=== PATIENT | female | born 1950 | race Caucasian/White ===

== ENCOUNTER → 2017-01-03 | Outpatient (CLI) | payer MEDICARE, OTHER ==
[~2017-01-03] MED LIST: BACTRIM DS TABL1 TA1 PO; BACTROBAN15 GM TOP; CLARITIN10 MG PO; KEFLEX PO; MULTIVITAMIN1 UDCAP PO; NO MEDICATIONS; VICODIN 5/1 TAB 5/50 PO
--- NOTE | ~2017-01-03 | EKG ---
PATIENT: NATHANIEL HASTINGS UNIT #: [id number] Ventricular Rate: 69 BPM Atrial Rate: 69 BPM P-R Interval: 134 ms QRS Duration: 82 ms Q-T Interval: 426 ms QTC Calculation(Bezet): 456 ms P [place]: 7 degrees Calculated R [place]: 6 degrees Calculated T [place]: -12 degrees Diagnosis Line: Normal sinus rhythm Diagnosis Line: Normal ECG Diagnosis Line: Diagnosis Line: Confirmed by MAITE ROSAS MD ([id number]) on 01/03/2017 Diagnosis Line: 10:37:14 PM INTERPRETING MD: RALPH MENON
[2017-01-03 08:09] LABS: HEMATOCRIT 41.9 % (35.0-45.0); HEMOGLOBIN 13.9 gm/dL (12.0-16.0); MEAN CELL VOLUME 88.4 FL (83-96); MEAN CORPUSCULAR HEMOGLOBIN 29.3 PG (28-34); MEAN CORPUSCULAR HGB CONC 33.1 g/dL (30-36); RED BLOOD COUNT 4.74 X10e (3.90-5.30); RED CELL DISTRIBUTION WIDTH 12.7 % (11.0-15.5); WHITE BLOOD COUNT 6.1 X10e3 (4.0-10.5)
[2017-01-03 08:27] LABS: PARTIAL THROMBOPLASTIN TIME 23.8 SECONDS (23.5-31.3); PROTHROMBIN TIME (PATIENT) 10.4 SECONDS (9.6-11.5)
[2017-01-03 08:36] LABS: BUN/CREATININE RATIO 23.75; CALCIUM SERUM 9.5 mg/dL (8.4-10.2); CREATININE SERUM 0.8 mg/dL (0.6-1.4); GLOM FILT RATE Estimated 77.4 mL/min (>60); POTASSIUM 4.5 mmol/L (3.5-5.1)
== END | disposition home or self-care (01) ==
LOC: CCVL 07:40
PROVIDERS: Internal Medicine Cardiovascular Disease
DX: R07.9 Chest pain, unspecified (principal); R94.31 Abnormal electrocardiogram [ECG] [EKG]
CPT/HCPCS: 36415; 80048; 85027; 85610; 85730; 93005; C1769; C1887; C1894; J1644; J2250; J3010